=== PATIENT | female | born 1980 | race Caucasian/White ===

== ENCOUNTER → 2017-02-04 | Outpatient (CLI) | payer BC ==
[~2017-02-04] MED LIST: ASPI-93 PO; LEVO200T44 PO; ZOCOR
--- NOTE | 2017-02-04 14:29 | DI ---
Indication: ITS.REASON: M54.5 LOW BACK PAIN MRI LUMBAR SPINE W/O CONTRAST: Comparison: None Technique: T1 and T2-weighted images in longitudinal maxilla image planes Findings: Patient shows no fractures or malalignments but does demonstrate degenerative changes particularly prominent at L5-S1 where there are Modic changes on either side of the disc space and significant posterior protrusion of disc material. Moderate degenerative changes and bulging are present at L4-5. Conus area is unremarkable. No additional acute findings are seen. Axial images L1-2 disc space is unremarkable. L2-3 disc space is unremarkable. L3-4 disc is unremarkable. L4-5 disc space shows moderate broad-based bulging leading to mild effacement of the overall canal diameter and bilateral neural foraminal narrowing. L5-S1 shows the most prominent disc space narrowing and slightly more prominent protrusion of disc material into the left of the midline causing contact with the exiting nerve root. Bilateral neural foraminal narrowing is present. Impression: 1. Degenerative changes most prominently at the L5 S1 disc space where there are Modic changes on either side of the disc space and the most prominent posterior protrusion of disc material is seen. This is central and slightly more to the left making contact with left-sided nerve root. Canal is mildly narrowed. 2. L4-5 disc space is degenerated with moderate disc bulging although there is just mild effect on the canal diameter. 3. No significant fractures or malalignments noted. .
== END ==
LOC: IMA 12:56
PROVIDERS: ATTEND Nurse Practitioner Family
DX: M54.5 Low back pain (principal); M51.36 Other intervertebral disc degeneration, lumbar region; M51.37 Other intervertebral disc degeneration, lumbosacral region